=== PATIENT | female | born 1950 | race Caucasian/White ===

== ENCOUNTER 2022-01-27 14:21 | Inpatient (IN) | payer OTHER ==
[2022-01-27] MEDS ORDERED: PIPERACILLIN/TAZOB 3.375 GM 3.375 GM in DEXTROSE 5%-WATER - 50 ML IVPB ONE (16:55)
[2022-01-27] MEDS ORDERED: PIPERACILLIN/TAZOB 3.375 GM 3.375 GM/50 ML BAG IVPB ONE (17:31)
[2022-01-27 18:14] LABS: BASO % 0.3 % (0-2.0); EOS % 1.4 % (0-4.5); HEMATOCRIT 24.5 % (32.4-45.2); HEMOGLOBIN 7.3 GM/dL (10.7-15.3); LYMPH % 15.2 % (8-40); MCH 23.1 pg (25.7-33.7); MCHC 29.6 g/dl (32.0-36.0); MEAN PLT VOLUME 7.8 fl (7.5-11.1); MONO % 9.7 % (3.8-10.2); NEUT % 73.4 % (42.8-82.8); PLATELET COUNT 337 10^3/uL (134-434); RBC 3.14 M/mm3 (3.60-5.2); RDW 17.6 % (11.6-15.6)
[2022-01-27 18:31] LABS: CALCIUM 9.5 mg/dL (8.5-10.1)
[2022-01-27 18:32] LABS: BLOOD UREA NITROGEN 34.1 mg/dL (7-18)
[2022-01-27 18:34] LABS: CREATININE 2.7 mg/dL (0.55-1.3)
[2022-01-27 18:36] LABS: BILIRUBIN,TOTAL 0.2 mg/dL (0.2-1); TOT PROT 6.9 g/dl (6.4-8.2)
[2022-01-27] MEDS ORDERED: SODIUM CHLORIDE 0.9% 500 ML INFUS.BAG IV ONE (19:08)
[2022-01-27 19:42] LABS: ERYTHROCYTE SEDIMENTATION RATE 57 mm/hr (0-30)
[2022-01-28] MEDS ORDERED: traMADol HCL 50 MG TABLET PO ONE (00:35)
[2022-01-28] MEDS ORDERED: ACETAMINOPHEN 325 MG TABLET (FP) PO PRN (00:35)
[2022-01-28 01:48] VITALS: BMI 36.1
[2022-01-28] MEDS: PIPERACILLIN/TAZOB 2.25 GM 2.25 GM in DEXTROSE 5%-WATER - 50 ML IVPB SCH ×3 (03:46→17:59)
[2022-01-28 10:32] LABS: BASO % 0.4 % (0-2.0); EOS % 3.1 % (0-4.5); HEMOGLOBIN 7.6 GM/dL (10.7-15.3); LYMPH % 12.8 % (8-40); MCH 24.1 pg (25.7-33.7); MCHC 30.4 g/dl (32.0-36.0); MEAN CELL VOLUME 79.2 fl (80-96); MEAN PLT VOLUME 7.8 fl (7.5-11.1); MONO % 14.2 % (3.8-10.2); NEUT % 69.5 % (42.8-82.8); PLATELET COUNT 291 10^3/uL (134-434); RBC 3.16 M/mm3 (3.60-5.2); RDW 17.4 % (11.6-15.6); WHITE BLOOD COUNT 7.3 K/mm3 (4.0-10.0)
[2022-01-28 11:07] LABS: ALBUMIN 2.6 g/dl (3.4-5.0); CALCIUM 9.4 mg/dL (8.5-10.1)
[2022-01-28 11:08] LABS: BLOOD UREA NITROGEN 34.2 mg/dL (7-18)
[2022-01-28 11:11] LABS: CREATININE 2.7 mg/dL (0.55-1.3)
[2022-01-28 11:12] LABS: BILIRUBIN,TOTAL 0.2 mg/dL (0.2-1); TOT PROT 6.2 g/dl (6.4-8.2)
[2022-01-28] MEDS: SILVER SULFADIAZINE 1% TOP CREAM 50 GM JAR TP SCH (14:02)
[2022-01-28] MEDS: traMADol HCL 50 MG TABLET PO PRN (15:44)
[2022-01-29] MEDS: PIPERACILLIN/TAZOB 2.25 GM 2.25 GM in DEXTROSE 5%-WATER - 50 ML IVPB SCH ×3 (02:16→20:06)
[2022-01-29] MEDS: traMADol HCL 50 MG TABLET PO PRN ×2 (02:30→19:06)
[2022-01-29] MEDS ORDERED: PIPERACILLIN/TAZOB 2.25 GM 2.25 GM in DEXTROSE 5%-WATER - 50 ML IVPB SCH (03:00)
[2022-01-29] MEDS: SILVER SULFADIAZINE 1% TOP CREAM 50 GM JAR TP SCH (10:29)
[2022-01-29 12:27] LABS: HEMATOCRIT 24.6 % (32.4-45.2); HEMOGLOBIN 7.4 GM/dL (10.7-15.3); MCH 24.2 pg (25.7-33.7); MCHC 30.2 g/dl (32.0-36.0); MEAN PLT VOLUME 7.4 fl (7.5-11.1); PLATELET COUNT 274 10^3/uL (134-434); RBC 3.08 M/mm3 (3.60-5.2); RDW 17.6 % (11.6-15.6); WHITE BLOOD COUNT 7.5 K/mm3 (4.0-10.0)
[2022-01-29 12:49] LABS: CALCIUM 9.5 mg/dL (8.5-10.1)
[2022-01-29 12:50] LABS: ALBUMIN 2.6 g/dl (3.4-5.0); BLOOD UREA NITROGEN 30.4 mg/dL (7-18)
[2022-01-29 12:53] LABS: CREATININE 2.7 mg/dL (0.55-1.3)
[2022-01-29 12:54] LABS: TOT PROT 6.2 g/dl (6.4-8.2)
[2022-01-29 12:55] LABS: BILIRUBIN,TOTAL 0.3 mg/dL (0.2-1)
[2022-01-30] MEDS: PIPERACILLIN/TAZOB 2.25 GM 2.25 GM in DEXTROSE 5%-WATER - 50 ML IVPB SCH ×3 (02:52→17:53)
[2022-01-30 06:03] LABS: EPI CELLS >36 /uL (0-25.1); HYALINE CASTS 1 /uL (0-3.1); PH,URINE 5.5 (5.0-8.0); URINE APPEARANCE CLEAR; URINE BACTERIA 3 /uL (0-1359); URINE BILIRUBIN NEGATIVE (NEGATIVE); URINE COLOR YELLOW; URINE GLUCOSE (UA) NEGATIVE (NEGATIVE); URINE KETONE NEGATIVE (NEGATIVE); URINE LEUK ESTERASE 1+ (NEGATIVE); URINE NITRITE NEGATIVE (NEGATIVE); URINE PROTEIN 1+ (NEGATIVE); URINE RBC 3 /uL (0-23.9); URINE UROBILINOGEN 0.2 mg/dL (0.2-1.0); URINE WBC 79 /uL (0-25.8)
[2022-01-30] MEDS: SILVER SULFADIAZINE 1% TOP CREAM 50 GM JAR TP SCH (09:49)
[2022-01-30 10:08] LABS: ALBUMIN 2.7 g/dl (3.4-5.0); BLOOD UREA NITROGEN 30.3 mg/dL (7-18); CALCIUM 9.7 mg/dL (8.5-10.1)
[2022-01-30 10:11] LABS: CREATININE 2.8 mg/dL (0.55-1.3)
[2022-01-30 10:13] LABS: BILIRUBIN,TOTAL 0.4 mg/dL (0.2-1); TOT PROT 6.4 g/dl (6.4-8.2)
[2022-01-31] MEDS: PIPERACILLIN/TAZOB 2.25 GM 2.25 GM in DEXTROSE 5%-WATER - 50 ML IVPB SCH ×3 (02:32→17:56)
[2022-01-31] MEDS: SILVER SULFADIAZINE 1% TOP CREAM 50 GM JAR TP SCH (14:52)
[2022-02-01] MEDS: PIPERACILLIN/TAZOB 2.25 GM 2.25 GM in DEXTROSE 5%-WATER - 50 ML IVPB SCH ×3 (01:52→18:14)
[2022-02-01] MEDS: SILVER SULFADIAZINE 1% TOP CREAM 50 GM JAR TP SCH (11:29)
[2022-02-02] MEDS: PIPERACILLIN/TAZOB 2.25 GM 2.25 GM in DEXTROSE 5%-WATER - 50 ML IVPB SCH ×3 (02:46→19:16)
[2022-02-02] MEDS ORDERED: INSULIN (NOVOLOG) ASPART 100 UNITS/ML 10ML VIAL ONE (08:15)
[2022-02-02 09:58] LABS: BASO % 0.7 % (0-2.0); EOS % 3.5 % (0-4.5); HEMATOCRIT 25.5 % (32.4-45.2); HEMOGLOBIN 7.6 GM/dL (10.7-15.3); MCH 23.7 pg (25.7-33.7); MCHC 29.7 g/dl (32.0-36.0); MEAN CELL VOLUME 79.6 fl (80-96); MEAN PLT VOLUME 7.7 fl (7.5-11.1); MONO % 15.4 % (3.8-10.2); NEUT % 67.4 % (42.8-82.8); PLATELET COUNT 256 10^3/uL (134-434); RBC 3.21 M/mm3 (3.60-5.2); RDW 18.2 % (11.6-15.6); WHITE BLOOD COUNT 5.4 K/mm3 (4.0-10.0)
[2022-02-02 10:26] LABS: CALCIUM 9.5 mg/dL (8.5-10.1)
[2022-02-02 10:27] LABS: ALBUMIN 2.5 g/dl (3.4-5.0); BLOOD UREA NITROGEN 24.4 mg/dL (7-18)
[2022-02-02 10:30] LABS: CREATININE 2.6 mg/dL (0.55-1.3)
[2022-02-02 10:31] LABS: BILIRUBIN,TOTAL 0.4 mg/dL (0.2-1)
[2022-02-02 10:32] LABS: TOT PROT 6.2 g/dl (6.4-8.2)
[2022-02-02] MEDS: SILVER SULFADIAZINE 1% TOP CREAM 50 GM JAR TP SCH (11:04)
[2022-02-03] MEDS: PIPERACILLIN/TAZOB 2.25 GM 2.25 GM in DEXTROSE 5%-WATER - 50 ML IVPB SCH ×3 (02:22→18:19)
[2022-02-03] MEDS: SILVER SULFADIAZINE 1% TOP CREAM 50 GM JAR TP SCH (10:42)
[2022-02-03] MEDS ORDERED: IRON SUCROSE INJECTION 200 MG in SODIUM CHLORIDE 90 ML IVPB ONE (14:00)
[2022-02-04] MEDS: PIPERACILLIN/TAZOB 2.25 GM 2.25 GM in DEXTROSE 5%-WATER - 50 ML IVPB SCH (01:26)
[2022-02-04] MEDS: SILVER SULFADIAZINE 1% TOP CREAM 50 GM JAR TP SCH (09:28)
[2022-02-04] MEDS ORDERED: PANTOPRAZOLE 40 MG TABLET PO SCH (10:00)
[2022-02-04 10:16] LABS: BASO % 0.5 % (0-2.0); EOS % 2.7 % (0-4.5); HEMATOCRIT 24.4 % (32.4-45.2); HEMOGLOBIN 7.2 GM/dL (10.7-15.3); LYMPH % 18.2 % (8-40); MCH 23.9 pg (25.7-33.7); MCHC 29.7 g/dl (32.0-36.0); MEAN CELL VOLUME 80.5 fl (80-96); MEAN PLT VOLUME 8.3 fl (7.5-11.1); MONO % 17.2 % (3.8-10.2); NEUT % 61.4 % (42.8-82.8); PLATELET COUNT 207 10^3/uL (134-434); RBC 3.02 M/mm3 (3.60-5.2); RDW 18.6 % (11.6-15.6); WHITE BLOOD COUNT 4.8 K/mm3 (4.0-10.0)
[2022-02-04 10:30] LABS: BLOOD UREA NITROGEN 21.8 mg/dL (7-18); CALCIUM 9.1 mg/dL (8.5-10.1)
[2022-02-04 10:31] LABS: ALBUMIN 2.5 g/dl (3.4-5.0)
[2022-02-04 10:34] LABS: CREATININE 2.4 mg/dL (0.55-1.3)
[2022-02-04 10:35] LABS: BILIRUBIN,TOTAL 0.5 mg/dL (0.2-1); TOT PROT 6.1 g/dl (6.4-8.2)
[2022-02-04 14:55] VITALS: BP 134/69; PULSE 85; RESP 20; TEMP 98.6
[2022-02-05 16:08] LABS: GLIADIN ANTIBODY IGA 3 units (0-19); GLIADIN ANTIBODY IGG 2 units (0-19); TRANSGLUTAMINASE IGG < 2 U/mL (0-5)
== END 2022-02-04 19:45 | disposition home or self-care (01) | DRG 603 ==
LOC: JER 14:21 → JERBED 20:00 → J7W 21:04
PROVIDERS: ADMIT Internal Medicine; ATTEND Family Medicine
PROC: 30233N1 Transfusion of Nonautologous Red Blood Cells into Peripheral Vein, Percutaneous Approach (ICD-10-PCS; principal; 2022-01-27)
DX: L03.115 Cellulitis of right lower limb (principal); N17.9 Acute kidney failure, unspecified; B49 Unspecified mycosis; L97.909 Non-pressure chronic ulcer of unspecified part of unspecified lower leg with unspecified severity; L03.116 Cellulitis of left lower limb; L08.9 Local infection of the skin and subcutaneous tissue, unspecified; M25.473 Effusion, unspecified ankle; E66.01 Morbid (severe) obesity due to excess calories; Z68.36 Body mass index [BMI] 36.0-36.9, adult; I73.9 Peripheral vascular disease, unspecified; I12.9 Hypertensive chronic kidney disease with stage 1 through stage 4 chronic kidney disease, or unspecified chronic kidney disease; N18.9 Chronic kidney disease, unspecified; D50.0 Iron deficiency anemia secondary to blood loss (chronic)
CPT/HCPCS: 0241U-QW; 36415; 36430; 73590-TC-LT-FY; 73590-TC-RT-FY; 73718-TC-LT; 76775-TC; 80053; 81003; 82570; 82607; 82746; 82784; 83036; 83516; 83540; 83550; 84155; 84156; 84165; 85025; 85027; 85045; 85651; 86140; 86334; 86850; 86870; 86880; 86900; 86901; 86902; 86922; 87040; 87070; 87077; 87186; 87205; 93005; 93010; 99285-25; J1756; P9058

== ENCOUNTER 2022-10-27 05:56 | Inpatient (IN) | payer OTHER ==
[2022-10-27 06:29] VITALS: BMI 34.1
[2022-10-27] MEDS ORDERED: ACETAMINOPHEN INJECTION 100 ML IVPB ONE ×2 (08:13→09:11)
[2022-10-27 08:48] LABS: BASO % 0.3 % (0-2.0); EOS % 1.3 % (0-4.5); HEMATOCRIT 34.7 % (32.4-45.2); HEMOGLOBIN 11.1 GM/dL (10.7-15.3); MCH 27.6 pg (25.7-33.7); MCHC 32.1 g/dl (32.0-36.0); MEAN CELL VOLUME 86.2 fl (80-96); MEAN PLT VOLUME 8.6 fl (7.5-11.1); MONO % 8.3 % (3.8-10.2); NEUT % 79.1 % (42.8-82.8); PLATELET COUNT 186 10^3/uL (134-434); RBC 4.02 M/mm3 (3.60-5.2); RDW 16.2 % (11.6-15.6); WHITE BLOOD COUNT 7.9 K/mm3 (4.0-10.0)
[2022-10-27 08:53] LABS: INR 0.97 (0.83-1.09); PROTHROMBIN TIME (PATIENT) 11.2 SEC (9.7-13.0)
[2022-10-27 08:55] LABS: ACTIVATED PTT 32.5 SECONDS (25.2-36.5)
[2022-10-27] MEDS ORDERED: PIPERACILLIN/TAZOB 4.5 GM 4.5 GM in DEXTROSE 5%-WATER 100 ML IVPB ONE (09:07)
[2022-10-27] MEDS ORDERED: VANCOMYCIN 1,500 MG in DEXTROSE 5%-WATER - 250 ML IVPB ONE (09:07)
[2022-10-27] MEDS ORDERED: ACETAMINOPHEN 1000 MG/100 ML BAG IVPB ONE (09:08)
[2022-10-27] MEDS ORDERED: PIPERACILLIN/TAZOB 4.5 GM 4.5 GM/100 ML BAG IVPB ONE (09:11)
[2022-10-27 09:14] LABS: POTASSIUM 4.3 mmol/L (3.5-5.1)
[2022-10-27 09:16] LABS: ALBUMIN 3.7 g/dl (3.4-5.0); CALCIUM 9.7 mg/dL (8.5-10.1)
[2022-10-27 09:17] LABS: BLOOD UREA NITROGEN 37.2 mg/dL (7-18)
[2022-10-27 09:20] LABS: CREATININE 2.2 mg/dL (0.55-1.3)
[2022-10-27 09:21] LABS: BILIRUBIN,TOTAL 0.5 mg/dL (0.2-1); TOT PROT 8.4 g/dl (6.4-8.2)
[2022-10-27] MEDS ORDERED: VANCOMYCIN PREMIX 1.5 GM 1,500 MG/300 ML BAG IVPB ONE (10:30)
[2022-10-27 12:25] LABS: ERYTHROCYTE SEDIMENTATION RATE 78 mm/hr (0-30)
[2022-10-27] MEDS: LINEZOLID 600 MG PREMIX BAG 600 MG/300 ML BAG IVPB SCH (17:04)
[2022-10-27] MEDS: PIPERACILLIN/TAZOB 2.25 GM 2.25 GM in DEXTROSE 5%-WATER - 50 ML IVPB SCH (18:38)
[2022-10-27] MEDS: HEPARIN NA (PORCINE) 5,000 UNITS/ML 1ML VIAL SQ SCH (21:22)
[2022-10-27] MEDS: NIFEdipine E.R. 30 MG TABLET PO SCH (21:22)
[2022-10-28] MEDS: PIPERACILLIN/TAZOB 2.25 GM 2.25 GM in DEXTROSE 5%-WATER - 50 ML IVPB SCH ×3 (01:23→18:09)
[2022-10-28] MEDS: LINEZOLID 600 MG PREMIX BAG 600 MG/300 ML BAG IVPB SCH ×2 (02:29→14:48)
[2022-10-28] MEDS: HEPARIN NA (PORCINE) 5,000 UNITS/ML 1ML VIAL SQ SCH ×2 (09:39→22:05)
[2022-10-28] MEDS: NIFEdipine E.R. 30 MG TABLET PO SCH ×2 (09:39→22:05)
[2022-10-28 12:17] LABS: BASO % 0.5 % (0-2.0); EOS % 3.1 % (0-4.5); HEMATOCRIT 35.3 % (32.4-45.2); LYMPH % 13.1 % (8-40); MCH 27.7 pg (25.7-33.7); MCHC 31.3 g/dl (32.0-36.0); MEAN CELL VOLUME 88.6 fl (80-96); NEUT % 73.3 % (42.8-82.8); PLATELET COUNT 172 10^3/uL (134-434); RBC 3.98 M/mm3 (3.60-5.2); RDW 16.1 % (11.6-15.6); WHITE BLOOD COUNT 5.8 K/mm3 (4.0-10.0)
[2022-10-28 13:50] LABS: POTASSIUM 5.5 mmol/L (3.5-5.1)
[2022-10-28 14:10] LABS: BLOOD UREA NITROGEN 32.4 mg/dL (7-18); CREATININE 2.1 mg/dL (0.55-1.3)
[2022-10-28 14:11] LABS: BILIRUBIN,TOTAL 0.6 mg/dL (0.2-1); TOT PROT 7.9 g/dl (6.4-8.2)
[2022-10-28 14:12] LABS: CALCIUM 9.4 mg/dL (8.5-10.1)
[2022-10-28 14:13] LABS: ALBUMIN 3.4 g/dl (3.4-5.0)
[2022-10-28] MEDS ORDERED: DOCUSATE SODIUM 100 MG CAPSULE (FP) PO PRN (16:55)
[2022-10-29] MEDS: PIPERACILLIN/TAZOB 2.25 GM 2.25 GM in DEXTROSE 5%-WATER - 50 ML IVPB SCH ×3 (01:25→18:12)
[2022-10-29] MEDS: LINEZOLID 600 MG PREMIX BAG 600 MG/300 ML BAG IVPB SCH ×2 (02:12→14:13)
[2022-10-29 09:20] LABS: BASO % 0.6 % (0-2.0); EOS % 4.2 % (0-4.5); HEMATOCRIT 36.8 % (32.4-45.2); HEMOGLOBIN 11.5 GM/dL (10.7-15.3); LYMPH % 17.6 % (8-40); MCH 27.7 pg (25.7-33.7); MCHC 31.3 g/dl (32.0-36.0); MEAN CELL VOLUME 88.6 fl (80-96); MEAN PLT VOLUME 8.9 fl (7.5-11.1); NEUT % 68.6 % (42.8-82.8); PLATELET COUNT 184 10^3/uL (134-434); RBC 4.15 M/mm3 (3.60-5.2); RDW 16.1 % (11.6-15.6); WHITE BLOOD COUNT 5.5 K/mm3 (4.0-10.0)
[2022-10-29 09:41] LABS: POTASSIUM 4.8 mmol/L (3.5-5.1)
[2022-10-29 09:45] LABS: CALCIUM 9.5 mg/dL (8.5-10.1)
[2022-10-29 09:46] LABS: ALBUMIN 3.7 g/dl (3.4-5.0); BLOOD UREA NITROGEN 31.6 mg/dL (7-18); MAGNESIUM 2.6 mg/dL (1.8-2.4)
[2022-10-29 09:49] LABS: CREATININE 2.1 mg/dL (0.55-1.3)
[2022-10-29 09:50] LABS: BILIRUBIN,TOTAL 0.5 mg/dL (0.2-1); TOT PROT 8.1 g/dl (6.4-8.2)
[2022-10-29] MEDS ORDERED: PIPERACILLIN/TAZOBACTAM 2.25 GM VIAL IVPB ONE (09:50)
[2022-10-29] MEDS: PANTOPRAZOLE 40 MG TABLET PO SCH (10:17)
[2022-10-29] MEDS: HEPARIN NA (PORCINE) 5,000 UNITS/ML 1ML VIAL SQ SCH ×2 (10:17→22:18)
[2022-10-29] MEDS: NIFEdipine E.R. 30 MG TABLET PO SCH ×2 (10:17→22:18)
[2022-10-30] MEDS: PIPERACILLIN/TAZOB 2.25 GM 2.25 GM in DEXTROSE 5%-WATER - 50 ML IVPB SCH ×3 (01:09→17:25)
[2022-10-30] MEDS: LINEZOLID 600 MG PREMIX BAG 600 MG/300 ML BAG IVPB SCH (02:26)
[2022-10-30] MEDS: HEPARIN NA (PORCINE) 5,000 UNITS/ML 1ML VIAL SQ SCH ×2 (09:43→21:47)
[2022-10-30] MEDS: PANTOPRAZOLE 40 MG TABLET PO SCH (09:43)
[2022-10-30] MEDS: NIFEdipine E.R. 30 MG TABLET PO SCH ×2 (09:43→21:47)
[2022-10-30 10:26] LABS: BASO % 0.2 % (0-2.0); HEMATOCRIT 33.4 % (32.4-45.2); HEMOGLOBIN 10.7 GM/dL (10.7-15.3); LYMPH % 15.5 % (8-40); MCH 27.9 pg (25.7-33.7); MCHC 32.1 g/dl (32.0-36.0); MEAN CELL VOLUME 86.9 fl (80-96); MEAN PLT VOLUME 8.5 fl (7.5-11.1); MONO % 9.7 % (3.8-10.2); NEUT % 71.6 % (42.8-82.8); PLATELET COUNT 175 10^3/uL (134-434); RBC 3.84 M/mm3 (3.60-5.2); RDW 15.9 % (11.6-15.6); WHITE BLOOD COUNT 6.1 K/mm3 (4.0-10.0)
[2022-10-30 10:34] LABS: POTASSIUM 4.2 mmol/L (3.5-5.1)
[2022-10-30 10:44] LABS: CALCIUM 9.6 mg/dL (8.5-10.1)
[2022-10-30 10:45] LABS: ALBUMIN 3.5 g/dl (3.4-5.0); BLOOD UREA NITROGEN 30.8 mg/dL (7-18); MAGNESIUM 2.4 mg/dL (1.8-2.4)
[2022-10-30 10:48] LABS: CREATININE 2.3 mg/dL (0.55-1.3)
[2022-10-30 10:49] LABS: BILIRUBIN,TOTAL 0.4 mg/dL (0.2-1); TOT PROT 7.8 g/dl (6.4-8.2)
[2022-10-30] MEDS: LINEZOLID 600 MG TABLET (RESTRICTED TO ID) PO SCH (20:26)
[2022-10-31] MEDS ORDERED: PIPERACILLIN/TAZOBACTAM 2.25 GM VIAL IVPB ONE (00:59)
[2022-10-31] MEDS: PIPERACILLIN/TAZOB 2.25 GM 2.25 GM in DEXTROSE 5%-WATER - 50 ML IVPB SCH ×3 (01:08→18:14)
[2022-10-31] MEDS: LINEZOLID 600 MG TABLET (RESTRICTED TO ID) PO SCH ×2 (08:58→22:12)
[2022-10-31] MEDS: HEPARIN NA (PORCINE) 5,000 UNITS/ML 1ML VIAL SQ SCH ×2 (09:02→22:12)
[2022-10-31] MEDS: NIFEdipine E.R. 30 MG TABLET PO SCH ×2 (09:02→22:12)
[2022-10-31] MEDS: PANTOPRAZOLE 40 MG TABLET PO SCH (09:02)
[2022-10-31 10:06] LABS: BASO % 0.5 % (0-2.0); EOS % 3.4 % (0-4.5); HEMATOCRIT 33.6 % (32.4-45.2); HEMOGLOBIN 10.5 GM/dL (10.7-15.3); LYMPH % 16.6 % (8-40); MCH 27.7 pg (25.7-33.7); MCHC 31.4 g/dl (32.0-36.0); MEAN CELL VOLUME 88.4 fl (80-96); MEAN PLT VOLUME 8.5 fl (7.5-11.1); MONO % 9.7 % (3.8-10.2); NEUT % 69.8 % (42.8-82.8); PLATELET COUNT 184 10^3/uL (134-434); RDW 16.1 % (11.6-15.6); WHITE BLOOD COUNT 6.2 K/mm3 (4.0-10.0)
[2022-10-31 10:23] LABS: POTASSIUM 4.8 mmol/L (3.5-5.1)
[2022-10-31 10:32] LABS: ALBUMIN 3.6 g/dl (3.4-5.0); CALCIUM 9.6 mg/dL (8.5-10.1); MAGNESIUM 2.5 mg/dL (1.8-2.4)
[2022-10-31 10:34] LABS: CREATININE 2.4 mg/dL (0.55-1.3)
[2022-10-31 10:36] LABS: BILIRUBIN,TOTAL 0.4 mg/dL (0.2-1)
[2022-10-31 21:46] VITALS: RESP 20
[2022-11-01] MEDS: PIPERACILLIN/TAZOB 2.25 GM 2.25 GM in DEXTROSE 5%-WATER - 50 ML IVPB SCH ×2 (02:04→09:07)
[2022-11-01 08:36] LABS: BASO % 0.3 % (0-2.0); EOS % 2.8 % (0-4.5); HEMOGLOBIN 11.3 GM/dL (10.7-15.3); LYMPH % 14.3 % (8-40); MCHC 32.2 g/dl (32.0-36.0); MEAN CELL VOLUME 87.1 fl (80-96); MEAN PLT VOLUME 8.1 fl (7.5-11.1); MONO % 8.3 % (3.8-10.2); NEUT % 74.3 % (42.8-82.8); PLATELET COUNT 187 10^3/uL (134-434); RBC 4.02 M/mm3 (3.60-5.2); RDW 16.4 % (11.6-15.6); WHITE BLOOD COUNT 7.1 K/mm3 (4.0-10.0)
[2022-11-01 08:59] LABS: POTASSIUM 4.6 mmol/L (3.5-5.1)
[2022-11-01 09:05] LABS: ALBUMIN 3.6 g/dl (3.4-5.0); BLOOD UREA NITROGEN 35.9 mg/dL (7-18); CALCIUM 9.6 mg/dL (8.5-10.1); MAGNESIUM 2.4 mg/dL (1.8-2.4)
[2022-11-01] MEDS: NIFEdipine E.R. 30 MG TABLET PO SCH ×2 (09:07→21:49)
[2022-11-01] MEDS: LINEZOLID 600 MG TABLET (RESTRICTED TO ID) PO SCH ×2 (09:07→23:09)
[2022-11-01] MEDS: HEPARIN NA (PORCINE) 5,000 UNITS/ML 1ML VIAL SQ SCH ×2 (09:07→21:49)
[2022-11-01] MEDS: PANTOPRAZOLE 40 MG TABLET PO SCH (09:07)
[2022-11-01 09:08] LABS: CREATININE 2.7 mg/dL (0.55-1.3)
[2022-11-01 09:10] LABS: BILIRUBIN,TOTAL 0.4 mg/dL (0.2-1)
[2022-11-01 09:12] LABS: TOT PROT 8.1 g/dl (6.4-8.2)
[2022-11-02] MEDS: HEPARIN NA (PORCINE) 5,000 UNITS/ML 1ML VIAL SQ SCH (09:50)
[2022-11-02] MEDS: NIFEdipine E.R. 30 MG TABLET PO SCH (09:50)
[2022-11-02] MEDS: PANTOPRAZOLE 40 MG TABLET PO SCH (09:50)
[2022-11-02] MEDS: LINEZOLID 600 MG TABLET (RESTRICTED TO ID) PO SCH (09:50)
[2022-11-02] MEDS ORDERED: levoFLOXacin 750 MG TABLET PO SCH (10:00)
[2022-11-02 12:18] VITALS: BP 140/67; PULSE 82; TEMP 97.8
== END 2022-11-02 11:30 | disposition home or self-care (01) | DRG 603 ==
LOC: JER 05:56 → JERBED 12:04 → J8W 13:33
PROVIDERS: ADMIT Internal Medicine; ATTEND Nurse Practitioner Acute Care
DX: L03.116 Cellulitis of left lower limb (principal); I12.9 Hypertensive chronic kidney disease with stage 1 through stage 4 chronic kidney disease, or unspecified chronic kidney disease; N18.9 Chronic kidney disease, unspecified; I73.9 Peripheral vascular disease, unspecified; L03.115 Cellulitis of right lower limb; E66.9 Obesity, unspecified; Z68.34 Body mass index [BMI] 34.0-34.9, adult
CPT/HCPCS: 36415; 73610-TC-LT-FY; 73610-TC-RT-FY; 73630-TC-LT; 73630-TC-RT-FY; 80053; 83036; 83735; 85025; 85610; 85651; 85730; 86140; 86850; 86870; 86900; 86901; 86902; 87040; 87070; 87186; 87205; 97116-GP; 97161-GP; 99285-25; A6197; G0463-25; J1644

== ENCOUNTER 2023-08-12 08:24 | Inpatient (IN) | payer OTHER ==
[2023-08-12 08:30] VITALS: BMI 34.1
[2023-08-12] MEDS ORDERED: VANCOMYCIN 1 GRAM (PRE-DOCKED) 1,000 MG/250 ML BAG IVPB ONE (09:29)
[2023-08-12 09:41] LABS: BASO % 0.4 % (0-2.0); EOS % 3.5 % (0-4.5); HEMOGLOBIN 11.3 GM/dL (10.7-15.3); LYMPH % 10.2 % (8-40); MCH 27.9 pg (25.7-33.7); MCHC 31.4 g/dl (32.0-36.0); MEAN CELL VOLUME 88.9 fl (80-96); MEAN PLT VOLUME 8.2 fl (7.5-11.1); MONO % 10.1 % (3.8-10.2); NEUT % 75.8 % (42.8-82.8); PLATELET COUNT 200 10^3/uL (134-434); RBC 4.05 M/mm3 (3.60-5.2); RDW 15.3 % (11.6-15.6); WHITE BLOOD COUNT 7.8 K/mm3 (4.0-10.0)
[2023-08-12] MEDS: VANCOMYCIN 1,000 MG in DEXTROSE 5%-WATER - 250 ML IVPB ONE (09:45)
[2023-08-12 09:51] LABS: POTASSIUM 4.5 mmol/L (3.5-5.1)
[2023-08-12 09:53] LABS: ALBUMIN 3.5 g/dl (3.4-5.0); CALCIUM 9.6 mg/dL (8.5-10.1)
[2023-08-12 09:57] LABS: CREATININE 2.3 mg/dL (0.55-1.3)
[2023-08-12 09:58] LABS: BILIRUBIN,TOTAL 0.5 mg/dL (0.2-1)
[2023-08-12 10:00] LABS: TOT PROT 8.5 g/dl (6.4-8.2)
[2023-08-12 10:03] LABS: BLOOD UREA NITROGEN 31.9 mg/dL (7-18)
[2023-08-12] MEDS ORDERED: diphenhydrAMINE HCL 25 MG CAPSULE (FP) PO PRN (12:03)
[2023-08-12] MEDS ORDERED: PIPERACILLIN/TAZOB 4.5 GM 4.5 GM/100 ML BAG IVPB ONE (12:11)
[2023-08-12] MEDS: PIPERACILLIN/TAZOB 4.5 GM 4.5 GM in DEXTROSE 5%-WATER 100 ML IVPB ONE (12:19)
[2023-08-12] MEDS: NIFEdipine E.R. 30 MG TABLET PO SCH ×2 (14:27→22:45)
[2023-08-12] MEDS: PIPERACILLIN/TAZOB 2.25 GM 2.25 GM in DEXTROSE 5%-WATER - 50 ML IVPB SCH (22:42)
[2023-08-12] MEDS: HEPARIN NA (PORCINE) 5,000 UNITS/ML 1ML VIAL SQ SCH (22:42)
[2023-08-13 07:54] LABS: BASO % 0.7 % (0-2.0); EOS % 5.5 % (0-4.5); HEMATOCRIT 34.5 % (32.4-45.2); HEMOGLOBIN 10.8 GM/dL (10.7-15.3); LYMPH % 12.6 % (8-40); MCHC 31.3 g/dl (32.0-36.0); MEAN CELL VOLUME 89.5 fl (80-96); MEAN PLT VOLUME 8.7 fl (7.5-11.1); MONO % 10.3 % (3.8-10.2); NEUT % 70.9 % (42.8-82.8); PLATELET COUNT 186 10^3/uL (134-434); RBC 3.85 M/mm3 (3.60-5.2); RDW 15.5 % (11.6-15.6); WHITE BLOOD COUNT 6.6 K/mm3 (4.0-10.0)
[2023-08-13 08:11] LABS: POTASSIUM 4.5 mmol/L (3.5-5.1)
[2023-08-13 08:17] LABS: CALCIUM 9.3 mg/dL (8.5-10.1)
[2023-08-13 08:18] LABS: ALBUMIN 3.2 g/dl (3.4-5.0); BLOOD UREA NITROGEN 33.7 mg/dL (7-18); MAGNESIUM 2.5 mg/dL (1.8-2.4)
[2023-08-13 08:20] LABS: PHOSPHOROUS 3.4 mg/dL (2.5-4.9)
[2023-08-13 08:21] LABS: BILIRUBIN,TOTAL 0.6 mg/dL (0.2-1); CREATININE 2.2 mg/dL (0.55-1.3); TOT PROT 7.4 g/dl (6.4-8.2)
[2023-08-13] MEDS: COLLAGENASE CLOSTRIDIUM HIST. 30 GRAMS TUBE TP SCH (11:53)
[2023-08-13] MEDS: VANCOMYCIN/WATER FOR INJ (PEG) 1,000 MG/200 ML BAG IVPB ONE (16:42)
[2023-08-14 08:31] LABS: BASO % 0.7 % (0-2.0); EOS % 5.6 % (0-4.5); HEMATOCRIT 35.5 % (32.4-45.2); HEMOGLOBIN 11.7 GM/dL (10.7-15.3); LYMPH % 12.7 % (8-40); MCHC 32.9 g/dl (32.0-36.0); MEAN CELL VOLUME 88.3 fl (80-96); MEAN PLT VOLUME 8.9 fl (7.5-11.1); MONO % 10.8 % (3.8-10.2); NEUT % 70.2 % (42.8-82.8); PLATELET COUNT 190 10^3/uL (134-434); RBC 4.02 M/mm3 (3.60-5.2); RDW 15.6 % (11.6-15.6); WHITE BLOOD COUNT 6.2 K/mm3 (4.0-10.0)
[2023-08-14 08:44] LABS: POTASSIUM 4.5 mmol/L (3.5-5.1)
[2023-08-14 08:53] LABS: CALCIUM 9.1 mg/dL (8.5-10.1)
[2023-08-14 08:54] LABS: ALBUMIN 3.4 g/dl (3.4-5.0); MAGNESIUM 2.3 mg/dL (1.8-2.4)
[2023-08-14 08:57] LABS: CREATININE 2.2 mg/dL (0.55-1.3)
[2023-08-14 08:58] LABS: BILIRUBIN,TOTAL 0.5 mg/dL (0.2-1)
[2023-08-14] MEDS: SILVER SULFADIAZINE 1% TOP CREAM 50 GM JAR TP SCH (11:10)
[2023-08-14] MEDS: CLINDAMYCIN HCL 150 MG CAPSULE (FP) PO SCH (14:37)
[2023-08-15 08:11] LABS: POTASSIUM 4.7 mmol/L (3.5-5.1)
[2023-08-15 08:19] LABS: CALCIUM 9.2 mg/dL (8.5-10.1)
[2023-08-15 08:20] LABS: ALBUMIN 3.5 g/dl (3.4-5.0); BLOOD UREA NITROGEN 32.6 mg/dL (7-18); MAGNESIUM 2.6 mg/dL (1.8-2.4)
[2023-08-15 08:23] LABS: CREATININE 2.3 mg/dL (0.55-1.3)
[2023-08-15 08:25] LABS: BILIRUBIN,TOTAL 0.4 mg/dL (0.2-1); TOT PROT 8.2 g/dl (6.4-8.2)
[2023-08-15 08:40] LABS: BASO % 0.4 % (0-2.0); EOS % 5.3 % (0-4.5); HEMATOCRIT 36.1 % (32.4-45.2); HEMOGLOBIN 11.8 GM/dL (10.7-15.3); MCH 28.9 pg (25.7-33.7); MCHC 32.7 g/dl (32.0-36.0); MEAN CELL VOLUME 88.2 fl (80-96); MEAN PLT VOLUME 8.7 fl (7.5-11.1); MONO % 10.6 % (3.8-10.2); NEUT % 67.7 % (42.8-82.8); PLATELET COUNT 205 10^3/uL (134-434); RBC 4.09 M/mm3 (3.60-5.2); RDW 15.6 % (11.6-15.6); WHITE BLOOD COUNT 6.5 K/mm3 (4.0-10.0)
[2023-08-15 15:08] VITALS: TEMP 97.7
[2023-08-15 23:14] VITALS: RESP 20
[2023-08-16 07:33] VITALS: BP 147/74; PULSE 83
== END 2023-08-16 11:45 | disposition home or self-care (01) | DRG 603 ==
LOC: JER 08:24 → JERBED 09:47 → J8W 15:18
PROVIDERS: ADMIT Internal Medicine; ATTEND Nurse Practitioner Family
DX: L03.115 Cellulitis of right lower limb (principal); L97.909 Non-pressure chronic ulcer of unspecified part of unspecified lower leg with unspecified severity; I12.9 Hypertensive chronic kidney disease with stage 1 through stage 4 chronic kidney disease, or unspecified chronic kidney disease; N18.9 Chronic kidney disease, unspecified; D50.9 Iron deficiency anemia, unspecified; I73.9 Peripheral vascular disease, unspecified; I87.2 Venous insufficiency (chronic) (peripheral); R01.1 Cardiac murmur, unspecified
CPT/HCPCS: 36415; 73590-TC-RT-FY; 80053; 83036; 83735; 84100; 85025; 85651; 86140; 87040; 93880-TC; 99285-25; G0463-25; G0480; J1644

== ENCOUNTER 2023-10-15 05:37 | Inpatient (IN) | payer OTHER ==
[2023-10-15 05:50] VITALS: BMI 35.2
[2023-10-15] MEDS ORDERED: VANCOMYCIN 1 GRAM (PRE-DOCKED) 1,000 MG/250 ML BAG IVPB ONE (08:15)
[2023-10-15 08:21] LABS: BASO % 1.1 % (0-2.0); EOS % 3.6 % (0-4.5); HEMATOCRIT 35.2 % (32.4-45.2); HEMOGLOBIN 11.3 GM/dL (10.7-15.3); LYMPH % 10.5 % (8-40); MCH 28.2 pg (25.7-33.7); MCHC 32.1 g/dl (32.0-36.0); MEAN CELL VOLUME 87.8 fl (80-96); MEAN PLT VOLUME 8.3 fl (7.5-11.1); MONO % 10.2 % (3.8-10.2); NEUT % 74.6 % (42.8-82.8); PLATELET COUNT 207 10^3/uL (134-434); RBC 4.01 M/mm3 (3.60-5.2); WHITE BLOOD COUNT 7.8 K/mm3 (4.0-10.0)
[2023-10-15] MEDS: VANCOMYCIN 1,000 MG in DEXTROSE 5%-WATER - 250 ML IVPB ONE (08:36)
[2023-10-15 08:37] LABS: POTASSIUM 4.5 mmol/L (3.5-5.1)
[2023-10-15 08:39] LABS: ALBUMIN 3.5 g/dl (3.4-5.0); BLOOD UREA NITROGEN 27.6 mg/dL (7-18); CALCIUM 9.3 mg/dL (8.5-10.1)
[2023-10-15 08:42] LABS: CREATININE 2.2 mg/dL (0.55-1.3)
[2023-10-15 08:44] LABS: BILIRUBIN,TOTAL 0.5 mg/dL (0.2-1); TOT PROT 8.2 g/dl (6.4-8.2)
[2023-10-15 10:23] LABS: ERYTHROCYTE SEDIMENTATION RATE 48 mm/hr (0-30)
[2023-10-15] MEDS ORDERED: MEROPENEM 1 GM in DEXTROSE 5%-WATER 100 ML IVPB SCH (14:15)
[2023-10-15] MEDS: HEPARIN NA (PORCINE) 5,000 UNITS/ML 1ML VIAL SQ SCH (15:36)
[2023-10-15] MEDS: MEROPENEM 1 GM in DEXTROSE 5%-WATER 100 ML IVPB SCH (15:36)
[2023-10-15] MEDS ORDERED: MEROPENEM 1 GM VIAL (RESTRICTED TO ID) IVPB ONE (20:43)
[2023-10-16] MEDS: VANCOMYCIN PREMIX 1.5 GM 1,500 MG/300 ML BAG IVPB SCH (08:14)
[2023-10-16 08:49] LABS: BASO % 0.6 % (0-2.0); EOS % 6.1 % (0-4.5); HEMATOCRIT 35.8 % (32.4-45.2); HEMOGLOBIN 11.3 GM/dL (10.7-15.3); LYMPH % 11.8 % (8-40); MCH 28.1 pg (25.7-33.7); MCHC 31.5 g/dl (32.0-36.0); MEAN CELL VOLUME 89.1 fl (80-96); MEAN PLT VOLUME 8.7 fl (7.5-11.1); MONO % 9.5 % (3.8-10.2); PLATELET COUNT 199 10^3/uL (134-434); RBC 4.01 M/mm3 (3.60-5.2); RDW 15.8 % (11.6-15.6); WHITE BLOOD COUNT 7.3 K/mm3 (4.0-10.0)
[2023-10-16 09:13] LABS: POTASSIUM 4.7 mmol/L (3.5-5.1)
[2023-10-16 09:15] LABS: ALBUMIN 3.4 g/dl (3.4-5.0); BLOOD UREA NITROGEN 28.3 mg/dL (7-18); CALCIUM 9.3 mg/dL (8.5-10.1)
[2023-10-16 09:16] LABS: MAGNESIUM 2.3 mg/dL (1.8-2.4)
[2023-10-16 09:19] LABS: CREATININE 2.1 mg/dL (0.55-1.3)
[2023-10-16 09:20] LABS: BILIRUBIN,TOTAL 0.6 mg/dL (0.2-1)
[2023-10-16] MEDS: NIFEdipine E.R. 30 MG TABLET PO SCH (10:10)
[2023-10-16] MEDS: COLLAGENASE CLOSTRIDIUM HIST. 30 GRAMS TUBE TP SCH (12:00)
[2023-10-16] MEDS: VANCOMYCIN HCL 1,500 MG in DEXTROSE 5%-WATER - 500 ML IVPB SCH (15:09)
[2023-10-16] MEDS: MEROPENEM 1 GM in DEXTROSE 5%-WATER 100 ML IVPB SCH (21:38)
[2023-10-17 10:28] LABS: BASO % 0.6 % (0-2.0); HEMATOCRIT 35.8 % (32.4-45.2); HEMOGLOBIN 11.6 GM/dL (10.7-15.3); LYMPH % 11.8 % (8-40); MCH 28.5 pg (25.7-33.7); MCHC 32.4 g/dl (32.0-36.0); MEAN PLT VOLUME 8.7 fl (7.5-11.1); MONO % 8.3 % (3.8-10.2); NEUT % 73.3 % (42.8-82.8); PLATELET COUNT 215 10^3/uL (134-434); RBC 4.07 M/mm3 (3.60-5.2); RDW 15.7 % (11.6-15.6); WHITE BLOOD COUNT 6.8 K/mm3 (4.0-10.0)
[2023-10-17] MEDS: DAPTOMYCIN 500 MG in SODIUM CHLORIDE 50 ML IVPB SCH (10:39)
[2023-10-17 10:53] LABS: POTASSIUM 4.8 mmol/L (3.5-5.1)
[2023-10-17 10:56] LABS: ALBUMIN 3.4 g/dl (3.4-5.0); CALCIUM 9.5 mg/dL (8.5-10.1)
[2023-10-17 10:57] LABS: BLOOD UREA NITROGEN 28.2 mg/dL (7-18)
[2023-10-17 11:00] LABS: CREATININE 2.2 mg/dL (0.55-1.3)
[2023-10-17 11:01] LABS: BILIRUBIN,TOTAL 0.5 mg/dL (0.2-1); TOT PROT 8.2 g/dl (6.4-8.2)
[2023-10-18 10:28] LABS: BASO % 0.9 % (0-2.0); EOS % 4.6 % (0-4.5); HEMATOCRIT 34.5 % (32.4-45.2); HEMOGLOBIN 11.2 GM/dL (10.7-15.3); LYMPH % 9.9 % (8-40); MCH 28.4 pg (25.7-33.7); MCHC 32.4 g/dl (32.0-36.0); MEAN CELL VOLUME 87.5 fl (80-96); MEAN PLT VOLUME 8.8 fl (7.5-11.1); MONO % 8.8 % (3.8-10.2); NEUT % 75.8 % (42.8-82.8); PLATELET COUNT 183 10^3/uL (134-434); RBC 3.94 M/mm3 (3.60-5.2); WHITE BLOOD COUNT 7.5 K/mm3 (4.0-10.0)
[2023-10-18 10:53] LABS: POTASSIUM 4.6 mmol/L (3.5-5.1)
[2023-10-18 10:55] LABS: ALBUMIN 3.3 g/dl (3.4-5.0); BLOOD UREA NITROGEN 28.7 mg/dL (7-18); CALCIUM 9.4 mg/dL (8.5-10.1)
[2023-10-18 11:00] LABS: BILIRUBIN,TOTAL 0.3 mg/dL (0.2-1); TOT PROT 8.1 g/dl (6.4-8.2)
[2023-10-19 09:29] LABS: BASO % 0.9 % (0-2.0); EOS % 6.6 % (0-4.5); HEMATOCRIT 35.3 % (32.4-45.2); HEMOGLOBIN 11.2 GM/dL (10.7-15.3); LYMPH % 15.5 % (8-40); MCH 28.2 pg (25.7-33.7); MCHC 31.7 g/dl (32.0-36.0); MEAN CELL VOLUME 88.8 fl (80-96); MEAN PLT VOLUME 8.9 fl (7.5-11.1); MONO % 11.8 % (3.8-10.2); NEUT % 65.2 % (42.8-82.8); PLATELET COUNT 207 10^3/uL (134-434); RBC 3.97 M/mm3 (3.60-5.2); RDW 15.5 % (11.6-15.6); WHITE BLOOD COUNT 7.2 K/mm3 (4.0-10.0)
[2023-10-19 09:44] LABS: POTASSIUM 4.7 mmol/L (3.5-5.1)
[2023-10-19 09:52] LABS: ALBUMIN 3.2 g/dl (3.4-5.0)
[2023-10-19 09:54] LABS: BLOOD UREA NITROGEN 28.9 mg/dL (7-18); CALCIUM 9.4 mg/dL (8.5-10.1); MAGNESIUM 2.4 mg/dL (1.8-2.4)
[2023-10-19 09:55] LABS: BILIRUBIN,TOTAL 0.5 mg/dL (0.2-1)
[2023-10-19 09:56] LABS: CREATININE 1.9 mg/dL (0.55-1.3); TOT PROT 7.8 g/dl (6.4-8.2)
[2023-10-19 09:57] LABS: PHOSPHOROUS 3.1 mg/dL (2.5-4.9)
[2023-10-21 09:22] LABS: HEMATOCRIT 37.5 % (32.4-45.2); HEMOGLOBIN 12.1 GM/dL (10.7-15.3); MCH 28.2 pg (25.7-33.7); MCHC 32.2 g/dl (32.0-36.0); MEAN CELL VOLUME 87.5 fl (80-96); MEAN PLT VOLUME 8.8 fl (7.5-11.1); PLATELET COUNT 220 10^3/uL (134-434); RBC 4.29 M/mm3 (3.60-5.2); WHITE BLOOD COUNT 7.5 K/mm3 (4.0-10.0)
[2023-10-21 09:44] LABS: POTASSIUM 4.8 mmol/L (3.5-5.1)
[2023-10-21 09:46] LABS: BLOOD UREA NITROGEN 36.7 mg/dL (7-18)
[2023-10-21 09:47] LABS: CALCIUM 9.7 mg/dL (8.5-10.1)
[2023-10-21 09:48] LABS: MAGNESIUM 2.5 mg/dL (1.8-2.4)
[2023-10-21 09:52] LABS: PHOSPHOROUS 3.6 mg/dL (2.5-4.9)
[2023-10-22 10:33] LABS: HEMATOCRIT 35.8 % (32.4-45.2); HEMOGLOBIN 11.5 GM/dL (10.7-15.3); MCH 28.4 pg (25.7-33.7); MCHC 32.1 g/dl (32.0-36.0); MEAN CELL VOLUME 88.5 fl (80-96); MEAN PLT VOLUME 9.2 fl (7.5-11.1); PLATELET COUNT 180 10^3/uL (134-434); RBC 4.04 M/mm3 (3.60-5.2); RDW 15.9 % (11.6-15.6); WHITE BLOOD COUNT 6.5 K/mm3 (4.0-10.0)
[2023-10-22 10:49] LABS: POTASSIUM 4.8 mmol/L (3.5-5.1)
[2023-10-22 11:03] LABS: BLOOD UREA NITROGEN 41.1 mg/dL (7-18); CALCIUM 9.7 mg/dL (8.5-10.1)
[2023-10-22 11:04] LABS: MAGNESIUM 2.5 mg/dL (1.8-2.4)
[2023-10-22 11:07] LABS: CREATININE 2.1 mg/dL (0.55-1.3)
[2023-10-22 11:08] LABS: PHOSPHOROUS 3.1 mg/dL (2.5-4.9)
[2023-10-23 09:06] LABS: HEMATOCRIT 35.9 % (32.4-45.2); HEMOGLOBIN 11.6 GM/dL (10.7-15.3); MCH 28.4 pg (25.7-33.7); MCHC 32.4 g/dl (32.0-36.0); MEAN CELL VOLUME 87.6 fl (80-96); MEAN PLT VOLUME 8.7 fl (7.5-11.1); PLATELET COUNT 222 10^3/uL (134-434); RBC 4.09 M/mm3 (3.60-5.2); RDW 16.1 % (11.6-15.6); WHITE BLOOD COUNT 7.1 K/mm3 (4.0-10.0)
[2023-10-23] MEDS: MULTIVITAMINS (DAILY MVI) TABLET (FP) PO SCH (09:27)
[2023-10-23 09:28] LABS: POTASSIUM 5.3 mmol/L (3.5-5.1)
[2023-10-23 09:41] LABS: BLOOD UREA NITROGEN 42.3 mg/dL (7-18)
[2023-10-23 09:43] LABS: CALCIUM 10.3 mg/dL (8.5-10.1)
[2023-10-23 09:44] LABS: MAGNESIUM 2.8 mg/dL (1.8-2.4); PHOSPHOROUS 3.9 mg/dL (2.5-4.9)
[2023-10-23 10:40] VITALS: BP 139/70; PULSE 82; RESP 17; TEMP 98.2
== END 2023-10-23 16:19 | disposition home or self-care (01) | DRG 603 ==
LOC: JER 05:37 → JERBED 10:09 → J5S 13:50
PROVIDERS: ADMIT Internal Medicine
DX: L03.115 Cellulitis of right lower limb (principal); L97.818 Non-pressure chronic ulcer of other part of right lower leg with other specified severity; I73.9 Peripheral vascular disease, unspecified; E66.9 Obesity, unspecified; Z68.35 Body mass index [BMI] 35.0-35.9, adult; I12.9 Hypertensive chronic kidney disease with stage 1 through stage 4 chronic kidney disease, or unspecified chronic kidney disease; N18.9 Chronic kidney disease, unspecified; G62.9 Polyneuropathy, unspecified; E78.5 Hyperlipidemia, unspecified; L08.9 Local infection of the skin and subcutaneous tissue, unspecified; I83.018 Varicose veins of right lower extremity with ulcer other part of lower leg; S81.802A Unspecified open wound, left lower leg, initial encounter; S81.801A Unspecified open wound, right lower leg, initial encounter; X58.XXXA Exposure to other specified factors, initial encounter; Y93.9 Activity, unspecified; Y92.9 Unspecified place or not applicable; Y99.9 Unspecified external cause status
CPT/HCPCS: 36415; 80048; 80053; 82550; 83735; 84100; 85025; 85027; 85651; 86140; 87635; 97116-GP; 97161-GP; 99285-25; J0878; J1644